=== PATIENT | male | born 1990 | race Caucasian/White ===

== ENCOUNTER → 2016-11-18 | Emergency (ER) | payer OTHER ==
[~2016-11-18] MED LIST: AZITHROMYCIN 1 GM PACKET PO ONE; AZITHROMYCIN 250 MG TABLET (FP) ONE; LIDOCAINE HCL 2% (20ML MULTI-DOSE VIAL) NR ONE
--- NOTE | 2016-11-18 02:06 | PDOC ---
Attending Attestation - Resident Resident Name: Chandler Shearer - HPI HPI: 11/20/16 23:09 pt presents to the ED requesting an STD check after having unprotected sex with a new partner. - Physicial Exam PE: 11/20/16 23:10 Agree with resident's exam. - Medical Decision Making 11/20/16 23:10 Pt presents to the ED for STD check. urine sent for GC, HIV test negative. Will discharge home.
--- NOTE | 2016-11-18 02:26 | PDOC ---
History of Present Illness - General Stated Complaint: ABD PAIN Time Seen by Provider: 11/18/16 01:50 History Source: Patient Exam Limitations: No Limitations - History of Present Illness Initial Comments: 11/18/16 02:22 The patient is a 26M with no PMH who presents to the ED with complaints of abdominal pain. The patient is complaining of b/l lower quadrant pain which radiates towards his genitals. After questioning, the patient states that he had unprotected intercourse and is requesting to be tested for STI infections. Surg: noncontributory Social: Does not smoke, drink, or use recreational drugs Allergies: none Past History - Past Medical History Allergies/Adverse Reactions: Allergies Allergy/AdvReac Type Severity Reaction Status Date / Time No Known Allergies Allergy Verified 11/18/16 02:26 Home Medications: Ambulatory Orders Albuterol Sulfate Inhaler - [Ventolin Hfa *Inhaler*] 2 inh IH Q4H PRN #1 inh 05/08 Azithromycin [Zithromax Tri-Michael] 500 mg PO DAILY #2 tablet 06/26/11 Cyclobenzaprine HCl [Flexeril -] 10 mg PO TID PRN #15 tablet 04/21/16 - Psycho/Social/Smoking Cessation Hx Anxiety: No Suicidal Ideation: No Smoking Status: Yes Smoking History: Current every day smoker Have you smoked in the past 12 months: Yes Number of Cigarettes Smoked Daily: 20 Hx Alcohol Use: No Drug/Substance Use Hx: No Substance Use Type: None Review of Systems - Review of Systems Able to Perform ROS?: Yes Constitutional: No: Chills, Fever ABD/GI: Yes: Other (b/l lower quadrant pain) : Yes: Testicular Pain (R sided). No: Burning, Dysuria, Discharge, Flank Pain , Urgency, Testicular Mass, Testicular Swelling *Physical Exam - Physical Exam General Appearance: Yes: Nourished, Appropriately Dressed. No: Apparent Distress Respiratory/Chest: positive: Lungs Clear, Normal Breath Sounds. negative: Chest Tender, Respiratory Distress Cardiovascular: positive: Regular Rhythm, Regular Rate, S1, S2 Gastrointestinal/Abdominal: positive: Normal Bowel Sounds, Flat, Soft. negative : Tender, Tenderness Male Genitalia: positive: normal genitalia. negative: testicular tenderness, testicular mass, epididymus tender, hematuria Musculoskeletal: negative: CVA Tenderness, CVA Tenderness (R), CVA Tenderness (L ) Extremity: positive: Pelvis Stable Integumentary: positive: Normal Color, Dry, Warm Neurologic: positive: Fully Oriented, Alert, Normal Mood/Affect Medical Decision Making - Medical Decision Making 11/18/16 02:25 The patient is a 26M who presents with concerns for an STI with a negative ROS and negative PE. I will order STI studies for the patient including an HIV test. 11/18/16 03:48 After discussing this case with my attending, we have decided to treat empirically for GC/Chla. I informed the patient that he needs follow up in 3 months for retesting and that he cannot have unprotected sex with his until he knows his 3 month HIV status and repeat GC/Chla test results. Patient agrees, will receive abx and d/c. *DC/Admit/Observation/Transfer Diagnosis at time of Disposition: Sexually transmitted disease - Discharge Dispostion Disposition: HOME Condition at time of disposition: Stable Admit: No - Patient Instructions Printed Discharge Instructions: Let's Talk About Sex (and STIs), Facts About Sexually Transmitted Infections, How to Detect and Treat STDs Additional Instructions: Please return to the ER if symptoms persist, worsen, or if new symptoms arise. Please get rechecked in 3 months. Do NOT have unprotected sex until you are rechecked. - Attestations Physician Attestion: 11/18/16 03:53 I, Dr. Chandler Shearer, attest that this document has been prepared under my direction and personally reviewed by me in its entirety. I further attest, that it accurately reflects all work, treatment, procedures and medical decision -making performed by me.
[2016-11-18 02:45] VITALS: BP 128/76; PULSE 85; TEMP 99; BMI 29.4
[2016-11-18 02:53] LABS: URINE APPEARANCE CLEAR; URINE BILIRUBIN NEGATIVE (NEGATIVE); URINE BLOOD 1+ (NEGATIVE); URINE COLOR YELLOW; URINE GLUCOSE (UA) NEGATIVE (NEGATIVE); URINE KETONE NEGATIVE (NEGATIVE); URINE LEUK ESTERASE NEGATIVE (NEGATIVE); URINE NITRITE NEGATIVE (NEGATIVE); URINE PROTEIN NEGATIVE (NEGATIVE); URINE UROBILINOGEN NEGATIVE mg/dL (0.2-1.0)
[2016-11-18 03:35] LABS: URINE MUCUS FEW; URINE RBC 1 /hpf (0-3); URINE WBC 2 /hpf (3-5)
[2016-11-18 03:36] LABS: HIV 1 & 2 AB NEGATIVE; HIV 1 AGp24 NEGATIVE
== END | disposition home or self-care (01) ==
LOC: JER 00:41
DX: A64 Unspecified sexually transmitted disease (principal)
CPT/HCPCS: 36415; 81003; 81015; 87389; 87491; 87591; 96372; 99282-25

== ENCOUNTER 2019-01-28 05:19 | Emergency (ER) | payer OTHER ==
--- NOTE | 2019-01-28 05:25 | PDOC ---
History of Present Illness - General Stated Complaint: EYE IRRITATION Time Seen by Provider: 01/28/19 05:24 Past History - Past Medical History Allergies/Adverse Reactions: Allergies Allergy/AdvReac Type Severity Reaction Status Date / Time No Known Allergies Allergy Verified 11/18/16 02:26 Home Medications: Ambulatory Orders NK [No Known Home Medication] 01/28/19 Anemia: No Asthma: No Cancer: No Cardiac Disorders: No CVA: No COPD: No DVT: No Dementia: No Diabetes: No Dialysis: No GI Disorders: No Disorders: No HTN: No Hypercholesterolemia: No Kidney Stones: No Liver Disease: No Psychiatric Problems: No Seizures: No Thyroid Disease: No Lung CA: No - Psycho Social/Smoking Cessation Hx Smoking Status: Yes Smoking History: Current every day smoker Have you smoked in the past 12 months: Yes Number of Cigarettes Smoked Daily: 20 Hx Alcohol Use: No Drug/Substance Use Hx: No Substance Use Type: None Medical Decision Making - Medical Decision Making HPI: 28yo M with no reported PMH presenting with eye pain x 1 day. Patient states he was working on the backsplash of his house when he felt a piece a tile hit his eye. He washed out his eye with water and visine but did not see a foreign body. Patient presents today because he woke up with severe eye pain. He has photosensitivity and is unsure if his vision is changed. No fevers, chills, chest pain, or shortness of breath. ROS: Constitutional: no fever, no chills HEENT: +eye pain, no dysphagia Cardiovascular: no chest pain, no palpitations Respiratory: no cough, no shortness of breath Gastrointestinal: no abdominal pain, no nausea Genitourinary: no dysuria, no hematuria Musculoskeletal: no myalgia, no arthralgia Skin: no rash, no itching Neurologic: no headache, no weakness PE: General: Awake, alert, and fully oriented, in no acute distress Head: No signs of trauma Eyes: EOMI, sclera anicteric; L. eye injected without obvious foreign body, R. eye normal; OD 20/25, OS 20/30, OU 20/20, ENT: Moist mucus membranes Neck: Normal ROM, supple Lungs: Lungs clear, Normal breath sounds Cardio: Regular rhythm, S1 and S2 present Abdomen: Soft, nontender. No guarding, no rebound, no masses Extremities: Normal range of motion, Distal pulses present SKIN: Warm, Dry, normal turgor Neurologic: Cranial nerves II through XII grossly intact. Normal speech ED Course/MDM: DDX including but not limited to corenal abrasion, foreign body, allergic reaction, eye inflammation Tetracaine Fluorescein Patient with eye pain relief after tetracaine drops; Fluorescein exam without area of uptake Low suspicion of corneal abrasion Patient given ophthalmology referral Discharged with return precautions Discharge - Discharge Information Problems reviewed: Yes Clinical Impression/Diagnosis: Eye pain Qualifiers: Laterality: right Qualified Code(s): H57.11 - Ocular pain, right eye Condition: Improved Disposition: HOME - Follow up/Referral Referrals: David Espinoza MD, MD [Primary Care Provider] - Leslie Hoff MD [Staff Physician] - - Patient Discharge Instructions Patient Printed Discharge Instructions: DI for Eye Pain Additional Instructions: You came into the emergency department for left eye pain. We placed eye drops in your eye which improved your pain. We performed an exam and did not detect any scratches on your eye. You can take [id number] tylenol or motrin for pain. Follow the instructions on the medication bottle. We have referred you to an door to door salesperson (seeing eye dog teacher). Call today and make an appointment to further evaluate your eye. Your workup is not complete until you do so. Immediate medical attention is required if you have: you develop worsening pain , vision changes, high fevers, or any new or concerning symptoms. If you think you are having an emergency, call for emergency medical services or present to the emergency department right away. - Post Discharge Activity Work/Back to School Note: Back to Work
[2019-01-28 05:32] VITALS: BP 138/78; PULSE 80; TEMP 97.8; BMI 33.0
--- NOTE | 2019-01-28 05:57 | PDOC ---
Attending Attestation - Resident Resident Name: Tish Emanuel - ED Attending Attestation I have performed the following: I have examined & evaluated the patient, The case was reviewed & discussed with the resident, I agree w/resident's findings & plan, Exceptions are as noted - HPI HPI: 01/28/19 06:51 28y M no pmhx presents with complaint of R eye fb sensation - pt states he was trying to remove the black splash from his home and felt something go into his eye - denie sany hannah pain, but notes that he felt something bounce in/out of his eye - and has been having irrititation since it occurred yesterday morning. pt notes he was having tearing/blurry vision. denies any heaadche, nausae/ vomiting. on exam: EOMI injected sclara on R eye no accumulation of flourisciene no fb on examinations of lid/eye - Physicial Exam PE: 01/30/19 15:18 see above - Medical Decision Making no signs of corneal abrasion will dc with ophtho fu return precautions were discussed
[2019-01-28] MEDS ORDERED: TETRACAINE 0.5% HCL 0.6ML DROPPER.BOTTLE OS ONE (06:00)
[2019-01-28] MEDS ORDERED: FLUORESCEIN NA 1 EA STRIP OS ONE (06:01)
[2019-01-28] MEDS ORDERED: TETRACAINE 0.5% OPHTH SOLN 2 ML BOTTLE ONE (06:07)
[2019-01-28] MEDS ORDERED: FLUORESCEIN NA 1 EA STRIP ONE (06:07)
== END 2019-01-28 06:41 | disposition home or self-care (01) ==
LOC: JER 05:19
DX: H57.11 Ocular pain, right eye (principal); F17.210 Nicotine dependence, cigarettes, uncomplicated; X58.XXXA Exposure to other specified factors, initial encounter; Y93.89 Activity, other specified; Y92.000 Kitchen of unspecified non-institutional (private) residence as the place of occurrence of the external cause
CPT/HCPCS: 99281-25

== ENCOUNTER 2019-05-15 10:32 | Emergency (ER) | payer OTHER ==
[2019-05-15 10:40] VITALS: BP 138/76; PULSE 87; TEMP 97.7; BMI 30.8
[2019-05-15] MEDS ORDERED: DEXAMETHASONE LIQUID 0.5 MG/5 ML PO ONE (11:13)
[2019-05-15] MEDS ORDERED: DEXAMETHASONE SOD PHOSPHATE 10 MG/1 ML VIAL ONE (11:15)
--- NOTE | 2019-05-15 11:18 | PDOC ---
History of Present Illness - General Chief Complaint: Sore Throat Stated Complaint: SORE THROAT Time Seen by Provider: 05/15/19 11:04 History Source: Patient Exam Limitations: No Limitations - History of Present Illness Initial Comments: 05/15/19 11:16 HISTORY OF PRESENT ILLNESS: 28-year-old male denies medical history presents emergency department 2 days of fevers and sore throat. He denies any headaches , body aches, cough, difficulty swallowing, shortness of breath, drooling. No recent travel or sick contacts. PAST MEDICAL HISTORY: Denies past medical history SURGICAL HISTORY: Denies ALLERGIES: No known drug allergies REVIEW OF SYSTEMS General/Constitutional: Denies fever or chills. Denies weakness, weight change. HEENT: See HPI Cardiovascular: Denies chest pain or shortness of breath. Respiratory: Denies cough, wheezing, or hemoptysis. Gastrointestinal: Denies nausea, vomiting, diarrhea or constipation. Denies rectal bleeding. Genitourinary: Denies dysuria, frequency, or change in urination. Musculoskeletal: Denies joint or muscle swelling or pain. Denies neck or back pain. Skin and breasts: Denies rash or easy bruising. Neurologic: Denies headache, vertigo, loss of consciousness, or loss of sensation. Psychiatric: Denies depression or anxiety. Endocrine: Denies increased thirst. Denies abnormal weight change. Hematologic/Lymphatic: Denies anemia, easy bleeding, or history of blood clots. Allergic/Immunologic: Denies hives or skin allergy. Denies latex allergy. PHYSICAL EXAM General Appearance: Well-appearing, appropriately dressed. No apparent distress , no intoxication. HEENT: EOMI, PERRLA, normal ENT inspection, normal voice, TMs normal. No conjunctival pallor. No photophobia, scleral icterus. Oropharynx erythematous with 3+ tonsils present. Exudates present to bilateral tonsils. Uvula is midline. No palpable abscesses noted. Neck: Supple. Trachea midline. No tenderness, rigidity, carotid bruit, stridor , lymphadenopathy, or thyromegaly. Respiratory/Chest: Lungs CTAB. No shortness of breath, chest tenderness, respiratory distress, accessory muscle use. No crackles, rales, rhonchi, stridor , wheezing, dullness Cardiovascular: RRR. S1, S2. No JVD, murmur, bradycardia, tachycardia. Neurologic: associate technician II-XII intact. Fully oriented, alert. Appropriate mood/affect. Motor strength 5/5. No appreciable EOM palsy, facial droop or sensory deficit. Past History - Past Medical History Allergies/Adverse Reactions: Allergies Allergy/AdvReac Type Severity Reaction Status Date / Time No Known Allergies Allergy Verified 05/15/19 10:40 Home Medications: Ambulatory Orders Amoxicillin - [Amoxicillin 500mg Capsule -] 500 mg PO BID #20 capsule 05/15/19 Anemia: No Asthma: No Cancer: No Cardiac Disorders: No CVA: No COPD: No DVT: No Dementia: No Diabetes: No Dialysis: No GI Disorders: No Disorders: No HTN: No Hypercholesterolemia: No Kidney Stones: No Liver Disease: No Psychiatric Problems: No Seizures: No Thyroid Disease: No Lung CA: No - Immunization History Td Vaccination: Yes TDAP Vaccination: Yes Immunization Up to Date: Yes - Psycho Social/Smoking Cessation Hx Smoking Status: Yes Smoking History: Current every day smoker Have you smoked in the past 12 months: Yes Number of Cigarettes Smoked Daily: 20 Information on smoking cessation initiated: No Hx Alcohol Use: No Drug/Substance Use Hx: No Substance Use Type: None *Physical Exam - Vital Signs Last Vital Signs Temp Pulse Resp BP Pulse Ox 97.7 F 87 18 138/76 99 05/15/19 10:35 05/15/19 10:35 05/15/19 10:35 05/15/19 10:35 05/15/19 10:35 Medical Decision Making - Medical Decision Making 05/15/19 11:15 A/P: 28-year-old male with pharyngitis Oropharynx erythematous with 3+ tonsillar swelling present. Exudate present to tonsils bilaterally Uvula is midline Given high likelihood of streptococcal infection I will treat the patient with amoxicillin 500 mg twice daily for the next 10 days. Throat swab has been collected but I will treat the patient regardless of results. Patient discharged prior to results returned. I discussed the physical exam findings, ancillary test results and final diagnoses with the patient. I answered all of the patient's questions. The patient was satisfied with the care received and felt comfortable with the discharge plan and treatment plan. The patient will call their primary care physician within 24 hours to arrange follow-up and will return to the Emergency Department with any new, persistent or worsening symptoms. Discharge - Discharge Information Problems reviewed: Yes Clinical Impression/Diagnosis: Pharyngitis Qualifiers: Pharyngitis/tonsillitis etiology: unspecified etiology Qualified Code(s): J02.9 - Acute pharyngitis, unspecified Condition: Stable Disposition: HOME - Admission No - Additional Discharge Information Prescriptions: Amoxicillin - [Amoxicillin 500mg Capsule -] 500 mg PO BID #20 capsule - Follow up/Referral - Patient Discharge Instructions Additional Instructions: Take amoxicillin as prescribed. Salt water garggles. Throw away your toothbrush in 3 days and start using a new toothbrush. No sharing of drinks, utensils or toothbrushes. Take Motrin as directed by respiratory physician's instructions. Return to ED for worsening fevers, worsening sore throat, chest pain, shortness of breath or any other concerns. - Post Discharge Activity
== END 2019-05-15 11:21 | disposition home or self-care (01) ==
LOC: JERFT 10:32
DX: J02.0 Streptococcal pharyngitis (principal); B95.0 Streptococcus, group A, as the cause of diseases classified elsewhere
CPT/HCPCS: 87880; 99281-25

== ENCOUNTER 2022-05-09 20:17 | Emergency (ER) | payer OTHER ==
[2022-05-09 20:24] VITALS: BP 147/78; PULSE 93; RESP 18; TEMP 97; BMI 33.0
== END 2022-05-09 21:49 | disposition home or self-care (01) ==
LOC: JERFT 20:17
DX: H60.331 Swimmer's ear, right ear (principal)
CPT/HCPCS: 99283-25